=== PATIENT | male | born 1980 | race Two or more races ===

== ENCOUNTER 2018-05-02 08:32 | Emergency (ER) | payer OTHER ==
[2018-05-02 08:45] VITALS: BP 125/75; PULSE 88; TEMP 98.5; BMI 38.2
--- NOTE | 2018-05-02 09:04 | PDOC ---
History of Present Illness - General Chief Complaint: Pain Stated Complaint: VOMITING BLOOD / STOMACH PAIN Time Seen by Provider: 05/02/18 08:50 History Source: Patient Exam Limitations: No Limitations - History of Present Illness Initial Comments: HPI: 37 y/o male presenting to [facility] ER complaining of nausea, vomiting, diarrhea, and abdominal pain since yesterday evening. States five episodes of soft stool with small amount of blood in water and on paper when wiping. Stool was initially black but now brown. States three episodes of emesis with small amount of blood. Last episode was this morning. Abdominal pain is left sided. Has tolerate small amount of PO (oatmeal). Has tried OCT Zantac with some relief. Pt is concerned that his doctor told him once that gastritis could become and ulcer. H/o of GERD. Takes Zantac. Does not follow with GI. Has never had an EGD or colonoscopy. PCP: Joe Ma Hx: - No h/o of cancers Social Hx: - Works in grocery store - No travel in past month - EtOH: Denies. States last drank three weeks ago and it was only one beer - Tobacco: Denies - Street drugs: Denies Medical Hx: - GERD Surgical Hx: - Pt denies Past History - Travel Traveled outside of the country in the last 30 days: No - Past Medical History Allergies/Adverse Reactions: Allergies Allergy/AdvReac Type Severity Reaction Status Date / Time No Known Allergies Allergy Verified 05/02/15 14:45 Home Medications: Ambulatory Orders Ondansetron [Zofran -] 4 mg PO Q8H #10 tablet 05/02/18 COPD: No - Immunization History Immunization Up to Date: Yes - Suicide/Smoking/Psychosocial Hx Smoking History: Never smoked Hx Alcohol Use: No Drug/Substance Use Hx: No Review of Systems - Review of Systems Able to Perform ROS?: Yes Comments:: In addition to that documented in the HPI above, the additional ROS was obtained : Constitutional: Endorses chills but denies fevers. Denies weight loss or weight gain. Head: Denies vision changes ENMT: Denies sore throat CV: Denies chest pain Resp: Denies SOB GI: Endorses vomiting and diarrhea : Denies painful urination, testicular pain, penile pain, or penile discharge MSK: Denies recent trauma Skin: Denies new rashes Neuro: Denies new numbness or tingling or weakness Endocrine: Denies polyuria Heme: Denies bleeding or bruising *Physical Exam - Vital Signs Last Vital Signs Temp Pulse Resp BP Pulse Ox 98.5 F 88 17 125/75 97 05/02/18 08:41 05/02/18 08:41 05/02/18 08:41 05/02/18 08:41 05/02/18 08:41 - Physical Exam Comments: Constitutional: Well-developed, well-nourished adult male in no acute distress or obvious discomfort. Obese body habitus. Found sitting upright on edge of hospital bed. Alert and oriented x4. Answered all questions appropriately and completely. Speech was non-labored, non-pressured. Head: Normocephalic. No obvious external signs of trauma. Eyes: Sclerae white. Ears: Hearing grossly intact. Nose: No nasal discharge. Neck: Supple, trachea is midline. Cardiovascular / Chest: Regular rate and regular rhythm. No murmur, rubs, clicks, or gallops. Peripheral pulses: radial pulses full. Respiratory: Breathing unlabored. Equal chest rise and fall. Clear to auscultation bilaterally. No stridor, no wheezing, no rhonchi. Gastrointestinal: abdomen is tender with grimace in LUQ and epigastric region. No rebound or guarding. No tenderness in RUQ or RLQ. Globally, abdomen is soft and nondistended. Large pannus. No hepatosplenemegaly. No pulsatile masses. No overlying skin lesions or obvious signs of trauma. Neuro: Alert and oriented. Moving all four extremities spontaneously. Skin: Warm, dry, and intact. Psych: Affect: appropriate. Mood: normal. Rectal: Good sphincter tone with no anal, perineal or rectal lesions. No blood or stool on digital exam. RN chaperoned exam. Moderate Sedation - Procedure Monitoring Vital Signs: Procedure Monitoring Vital Signs Temperature 98.5 F 05/02/18 08:41 Pulse Rate 88 05/02/18 08:41 Respiratory Rate 17 05/02/18 08:41 Blood Pressure 125/75 05/02/18 08:41 O2 Sat by Pulse Oximetry (%) 97 05/02/18 08:41 ED Treatment Course - LABORATORY CBC & Chemistry Diagram: 05/02/18 09:46 05/02/18 09:46 Medical Decision Making - Medical Decision Making *Reviewed vital signs, nursing notes, and prior visit documentation (if available). 37 y/o male with N/V/D with reported hematochezia and hematemesis. Afebrile. Vitals unremarkable for hypotension or tachycardia. Grossly well appearing. Physical exam as described above. No peritoneal signs. Wharton abdomen. Suspect viral gastroenteritis. Low suspicion for PUD, perforation, SBO, or pneumomediastinum. Will obtain CBC, CMP, and lipase to further evaluate. Ordered viscous lidocaine, Maalox, and IVFB for symptom relief. CBC revealed mild leukocytosis without left shift. Suspect likely reactionary. CMP unremarkable for significant electrolyte derangement. LFTs not elevated. BUN and Cr at baseline. eGFR >60. Lipase not elevated. Pts called the department. I explained that I could not provide patient information over the telephone. She began frustrated and demanded her receive and ultrasound to evaluate his gallbladder, pancreas, and stomach. I again explained that I was unable to provide patient information over the telephone, and that she was welcome to come to the bedside for further discussion. Pt reassessed. States his stomach feels somewhat better. No further vomiting or diarrhea. Repeat abdominal exam is unchanged from initial. Tender in epigastrium , LUQ, and LLQ without rebound or withdrawl. No tenderness to RUQ, RLQ, and no referred pain to RLQ when LLQ palpated. No peritoneal signs. Discussed why an ultrasound was not indicated at this time. Continue to suspect viral gastroenteritis. Discussed physical exam findings and laboratory results with pt. Answered all questions. Provided return precautions. Pt expressed verbal understanding and agreement with plan to discharge home with outpatient follow up. Given GI referral. Will prescribe Zofran PRN for symptom relief. *DC/Admit/Observation/Transfer Diagnosis at time of Disposition: Nausea vomiting and diarrhea, Abdominal pain in male - Discharge Dispostion Disposition: HOME Condition at time of disposition: Good Decision to Admit order: No - Prescriptions Prescriptions: Ondansetron [Zofran -] 4 mg PO Q8H #10 tablet - Referrals Referrals: Sky Rehman MD [Staff Physician] - - Patient Instructions Printed Discharge Instructions: DI for Viral Gastroenteritis -- Adult Additional Instructions: You were seen today for nausea, vomiting, and diarrhea since last night. Your symptoms are likely because of a viral gastroenteritis. You may continue to have vomiting and diarrhea for the next few days. Please continue to drink fluids (water, Gatorade, etc) to stay hydrated. You can try and eat a small bland meal (crackers, etc) after you have stopped vomiting for 12 hours. I have sent a prescription for Zofran to your pharmacy. Take as directed on the package insert. Do not take more than the recommended dose. You do not need an abdominal ultrasound at this time because your tenderness in not in the right upper quadrant, which would be a sign of problems with your gallbladder. Your lipase level was within normal limits, meaning it is not likely a problem with your pancrase. Ultrasound is not a good way of evaluating the stomach. The best way to see if you have an ulcer is with an endoscopy. This is not a procedure we perform in the emergency department. You should follow up with a GI doctor. I have placed a referral for you to see Dr. Rehman. You will need to call to make an appointment. The number is included in this packet. A copy of todays results are attached to this packet. Take it to the appointment so your doctor can review them. You can also follow up with your primary care doctor. Return to the emergency room if your vomiting becomes much worse and you are no longer able to keep fluids down, if you begin to feel dehydrated, if you develop a fever, pass out, become disoriented, begin vomiting blood, have bloody diarrhea, or you feel like you need additional emergency care. Print Language: ALGERIAN - Post Discharge Activity Forms/Work/School Notes: Back to Work
[2018-05-02] MEDS ORDERED: LACTATED RINGERS SOLUTION 1000 ML INFUS.BAG IV ONE (09:11)
[2018-05-02] MEDS ORDERED: LIDOCAINE VISCOUS 2% ORAL/TOP 100 ML BOTTLE MM ONE (09:11)
[2018-05-02] MEDS ORDERED: ONDANSETRON 4 MG/2 ML VIAL IVPUSH ONE (09:11)
[2018-05-02] MEDS ORDERED: MAG HYDROX/AL HYDROX/SIMETH 30 ML UNIT-DOSE CUP PO ONE (09:11)
--- NOTE | 2018-05-02 09:32 | PDOC ---
Attending Attestation - Resident Resident Name: Keith Velasco - ED Attending Attestation I have performed the following: I have examined & evaluated the patient, The case was reviewed & discussed with the resident, I agree w/resident's findings & plan, Exceptions are as noted - HPI HPI: 05/02/18 09:32 37 M with h/o gastritis presents to ED with N+V+D. Pt states that his symptoms began last night. He reports about 3 episodes of vomiting and 5 episodes of diarrhea. Endorses blood streaks in both but denies large volume of blood in either vomit or stool. Denies coffee grounds emesis. Denies dark tarry stools. Endorses epigastric pain. Denies F/C. Denies sick contacts. - Physicial Exam PE: 05/02/18 09:35 GENERAL: Awake, alert, and fully oriented, in no acute distress. HEAD: No signs of trauma EYES: PERRLA, EOMI, sclera anicteric, conjunctiva clear ENT: Auricles normal inspection, hearing grossly normal, nares patent, oropharynx clear without exudates. Moist mucosa NECK: Nontender, no stepoffs, Normal ROM, supple, no lymphadenopathy, JVD, or masses LUNGS: Breath sounds equal, clear to auscultation bilaterally. No wheezes, and no crackles HEART: Regular rate and rhythm, normal S1 and S2, no murmurs, rubs or gallops ABDOMEN: + epigastric TTP, normoactive bowel sounds. No guarding, no rebound. No masses EXTREMITIES: Normal range of motion, no edema. No clubbing or cyanosis. No cords, erythema, or tenderness NEUROLOGICAL: Cranial nerves II through XII intact. 5/5 strength and sensation in all extremities, Normal speech, normal gait, normal cerebellar function SKIN: Warm, Dry, normal turgor, no rashes or lesions noted. - Medical Decision Making 05/02/18 09:36 37 M with N +V+D. Suspect viral gastroenteritis. Abdomen with only epigastric TTP. Pt endorses blood streaked stool and vomiting but low suspicion for serious GI bleed. Rectal exam without melena or hematochezia. - Labs - IVF, GI cocktail 05/02/18 11:36 Labs wnl Pt and requesting US to r/o gallstones. However, pt without any RUQ tenderness, negative mejia's. No h/o gallstones. LFTs unremarkable. Clinically more consistent with a viral gastroenteritis. Explained to pt that US is not indicated at this time, but if he were to develop new or worsening symptoms, he should come back for possible imaging. Pt reassessed after GI meds, now feels significantly better. Pt is well appearing, with normal vitals. Clinically stable for DC at this time. I discussed the physical exam findings, ancillary test results and final diagnoses with the patient. I answered all of the patient's questions. The patient was satisfied with the care received and felt comfortable with the discharge plan and treatment plan. The patient agrees to follow up with the primary care physician within 24-72 hours.
[2018-05-02] MEDS ORDERED: ONDANSETRON 4 MG/2 ML VIAL ONE (09:38)
[2018-05-02] MEDS ORDERED: LIDOCAINE VISCOUS 2% ORAL/TOP 20 ML UNIT-DOSE CUP ONE (09:38)
[2018-05-02] MEDS ORDERED: MAG HYDROX/AL HYDROX/SIMETH 30 ML UNIT-DOSE CUP ONE (09:38)
[2018-05-02 10:05] LABS: BASO % 0.4 % (0-2.0); EOS % 0.3 % (0-4.5); HEMATOCRIT 44.2 % (35.4-49); HEMOGLOBIN 15.4 GM/dL (11.7-16.9); LYMPH % 16.7 % (8-40); MCHC 34.8 g/dl (32.0-35.9); MEAN PLT VOLUME 9.3 fl (7.5-11.1); MONO % 10.8 % (3.8-10.2); NEUT % 71.8 % (42.8-82.8); PLATELET COUNT 235 K/MM3 (134-434); RBC 4.96 M/mm3 (4.00-5.60); RDW 13.5 % (11.9-15.9); WHITE BLOOD COUNT 13.1 K/mm3 (4.0-10.0)
[2018-05-02 10:40] LABS: ALBUMIN 3.8 g/dl (3.4-5.0); ALK PHOS 84 U/L (45-117); ANION GAP 6 MMOL/L (8-16); BILIRUBIN,TOTAL 0.4 mg/dL (0.2-1); BLOOD UREA NITROGEN 12 mg/dL (7-18); CALCIUM 8.7 mg/dL (8.5-10.1); CHLORIDE 105 mmol/L (98-107); CO2 27 mmol/L (21-32); CREATININE 0.9 mg/dL (0.55-1.3); GLUCOSE,RANDOM 110 mg/dL (74-106); LIPASE 172 U/L (73-393); POTASSIUM 4.1 mmol/L (3.5-5.1); SGOT/AST 34 U/L (15-37); SGPT/ALT 53 U/L (13-61); SODIUM 138 mmol/L (136-145); TOT PROT 7.4 g/dl (6.4-8.2)
== END 2018-05-02 11:47 | disposition home or self-care (01) ==
LOC: JER 08:32
PROC: 3E033GC Introduction of Other Therapeutic Substance into Peripheral Vein, Percutaneous Approach (ICD-10-PCS; principal; 2018-05-02)
DX: A08.4 Viral intestinal infection, unspecified (principal); B97.89 Other viral agents as the cause of diseases classified elsewhere; K21.9 Gastro-esophageal reflux disease without esophagitis
CPT/HCPCS: 36415; 80053; 83690; 85025; 96374; 99283-25

== ENCOUNTER 2020-11-20 20:14 | Emergency (ER) | payer OTHER ==
[2020-11-20 20:27] VITALS: BMI 34.9
[2020-11-20] MEDS ORDERED: SODIUM CHLORIDE 1,000 ML IV STA (22:52)
[2020-11-20] MEDS ORDERED: ONDANSETRON 4 MG/2 ML VIAL IVPUSH ONE (22:52)
[2020-11-20] MEDS ORDERED: FAMOTIDINE 20 MG/50 ML IVPB 20 MG/50 ML MG IVPB ONE (22:52)
[2020-11-20] MEDS ORDERED: ACETAMINOPHEN 1000 MG/100 ML VIAL (NON FORMULARY) IVPB ONE (22:52)
[2020-11-20] MEDS ORDERED: MAG HYDROX/AL HYDROX/SIMETH 30 ML UNIT-DOSE CUP PO ONE (22:53)
[2020-11-20] MEDS ORDERED: MAG HYDROX/AL HYDROX/SIMETH 30 ML UNIT-DOSE CUP ONE (23:17)
[2020-11-20] MEDS ORDERED: ONDANSETRON 4 MG/2 ML VIAL ONE (23:17)
[2020-11-20] MEDS ORDERED: ACETAMINOPHEN INJECTION 100 ML IVPB ONE (23:17)
[2020-11-20 23:46] LABS: BASO % 0.2 % (0-2.0); EOS % 0.4 % (0-4.5); HEMATOCRIT 44.8 % (35.4-49); HEMOGLOBIN 15.3 GM/dL (11.7-16.9); LYMPH % 5.8 % (8-40); MCH 30.8 pg (25.7-33.7); MCHC 34.1 g/dl (32.0-35.9); MEAN CELL VOLUME 90.1 fl (80-96); MEAN PLT VOLUME 8.4 fl (7.5-11.1); MONO % 5.8 % (3.8-10.2); NEUT % 87.8 % (42.8-82.8); PLATELET COUNT 215 10^3/uL (134-434); RBC 4.98 M/mm3 (4.00-5.60); RDW 12.9 % (11.9-15.9); WHITE BLOOD COUNT 12.4 K/mm3 (4.0-10.0)
[2020-11-20 23:48] LABS: PH,URINE 6.5 (5.0-8.0); URINE APPEARANCE CLEAR; URINE BILIRUBIN NEGATIVE (NEGATIVE); URINE COLOR YELLOW; URINE GLUCOSE (UA) NEGATIVE (NEGATIVE); URINE KETONE NEGATIVE (NEGATIVE); URINE LEUK ESTERASE NEGATIVE (NEGATIVE); URINE NITRITE NEGATIVE (NEGATIVE); URINE PROTEIN NEGATIVE (NEGATIVE)
[2020-11-20 23:58] LABS: INR 0.95 (0.83-1.09); PROTHROMBIN TIME (PATIENT) 11.7 SEC (9.7-13.0)
[2020-11-21 00:08] LABS: ALBUMIN 4.1 g/dl (3.4-5.0); CALCIUM 8.7 mg/dL (8.5-10.1)
[2020-11-21 00:09] LABS: BLOOD UREA NITROGEN 21.8 mg/dL (7-18)
[2020-11-21 00:12] LABS: CREATININE 0.9 mg/dL (0.55-1.3)
[2020-11-21 00:13] LABS: BILIRUBIN,TOTAL 0.6 mg/dL (0.2-1); TOT PROT 7.7 g/dl (6.4-8.2)
[2020-11-21 01:50] VITALS: TEMP 98
[2020-11-21 04:05] VITALS: BP 110/64; PULSE 63
== END 2020-11-21 04:06 | disposition home or self-care (01) ==
LOC: JER 20:14
PROC: 3E0333Z Introduction of Anti-inflammatory into Peripheral Vein, Percutaneous Approach (ICD-10-PCS; principal; 2020-11-20)
PROC: 3E033GC Introduction of Other Therapeutic Substance into Peripheral Vein, Percutaneous Approach (ICD-10-PCS; 2020-11-20)
PROC: 3E033GC Introduction of Other Therapeutic Substance into Peripheral Vein, Percutaneous Approach (ICD-10-PCS; 2020-11-20)
PROC: 3E0337Z Introduction of Electrolytic and Water Balance Substance into Peripheral Vein, Percutaneous Approach (ICD-10-PCS; 2020-11-20)
DX: R10.13 Epigastric pain (principal)
CPT/HCPCS: 36415; 74177-TC; 80053; 81003; 82272; 85025; 85610; 87086; 96361; 96374; 96375; 99285-25; J0131